=== PATIENT | male | born 1960 | race Caucasian/White ===

== ENCOUNTER → 2016-09-03 | Outpatient (CLI) | payer BC ==
--- NOTE | 2016-09-03 09:43 | DIAGNOSTIC IMAGING REPORT ---
CHEST 2 VIEWS ROUTINE CLINICAL HISTORY: Wheezing and shortness of breath. COMPARISON STUDY: No previous studies for comparison. FINDINGS: Lung volumes are normal. No pneumothorax or pleural effusion is present. Cardiac size is normal. Mediastinal contours are normal. There is no evidence of pulmonary edema. IMPRESSION: No acute cardiopulmonary findings. Electronically signed by: Mathew Walker M.D. 09/03/2016 9:42 AM Dictated Date/Time: 09/03/2016 9:38 AM
== END | disposition home or self-care (01) ==
LOC: C.RAD1850 09:29
PROVIDERS: ATTEND Physician Assistant
DX: R06.2 Wheezing (principal); R06.09 Other forms of dyspnea

== ENCOUNTER → 2016-09-17 | Outpatient (CLI) | payer BC ==
--- NOTE | 2016-09-17 12:02 | DIAGNOSTIC IMAGING REPORT ---
ULTRASOUND OF THE CAROTID ARTERIES CLINICAL HISTORY: LIGHTHEADEDNESS (ICD-R42) COMPARISON STUDY: None. TECHNIQUE: Real-time, grayscale, and color Doppler sonography of the carotid arteries was performed. Imaging reviewed in the transverse and longitudinal planes. NASCET criteria was utilized for stenosis calcification. FINDINGS: There is mild atherosclerotic plaque present . The peak systolic velocity within the right internal carotid artery is 76 cm/sec. The systolic velocity ratio of right internal to common carotid artery is 0.9. The peak systolic velocity within the left internal carotid artery is 93 cm/sec. The systolic velocity ratio left internal to common carotid artery is 1.2. Antegrade flow is seen in the vertebral arteries. The external carotid arteries are patent. Blood pressure in the right arm measured 147 mm/Hg. Blood pressure in the left arm measured 162 mm/Hg. IMPRESSION: No evidence of hemodynamically significant carotid stenosis. Electronically signed by: Rome Duffy M.D. 09/17/2016 12:01 PM Dictated Date/Time: 09/17/2016 12:00 PM
== END | disposition home or self-care (01) ==
LOC: C.ULTR 10:47
PROVIDERS: ATTEND Physician Assistant
DX: R42 Dizziness and giddiness (principal)

== ENCOUNTER → 2016-10-09 | Outpatient (CLI) | payer BC ==
--- NOTE | 2016-10-18 19:52 | Pulmonary Function Report ---
Pulmonary Function Report Date of Service: [f__Service__Date/Time] . 10/09/2016 Pulmonary Function Report: Spirometry is within the limits of normal. Repeat study done following bronchodilator showed no significant change in function. Flow volume loops on expiration were normal. Patient did not optimally performed the inspiratory portion of the flow volume loop. Lung volumes show mild decrease in RV and FRC with a low-normal TLC. These results would suggest restriction. Diffusion capacity is normal at 92 percent of predicted. Copies To 1: Ana María Kaplan PA-C
== END | disposition home or self-care (01) ==
LOC: C.RC 09:54
PROVIDERS: ATTEND Physician Assistant
DX: R42 Dizziness and giddiness (principal); R06.09 Other forms of dyspnea; F17.200 Nicotine dependence, unspecified, uncomplicated

== ENCOUNTER → 2017-08-27 | Outpatient (CLI) | payer BC ==
--- NOTE | 2017-08-27 08:33 | DIAGNOSTIC IMAGING REPORT ---
LEFT ELBOW 3 VIEWS HISTORY: ELBOW PAIN LEFT COMPARISON: None. FINDINGS: There is no fracture or dislocation. Soft tissues are unremarkable. No radiopaque foreign bodies. No joint effusion. Small enthesophyte at the olecranon. Cartilage spaces are maintained for age. IMPRESSION: No fracture or dislocation within the left elbow. Electronically signed by: Jason Syed M.D. 08/27/2017 8:32 AM Dictated Date/Time: 08/27/2017 8:27 AM
== END | disposition home or self-care (01) ==
LOC: C.RAD 08:02
PROVIDERS: ATTEND Physician Assistant
DX: M25.522 Pain in left elbow (principal)